=== PATIENT | female | born 1985 | race Caucasian/White ===

== ENCOUNTER 2021-10-24 13:52 | Emergency (ER) | payer SELFPAY ==
[~2021-10-24] VITALS: Ht 162.6 cm; Wt 63.5 kg
[2021-10-24 14:29] LABS: Basophils # (auto) 0.1 10 ^3/uL (0-0.2); Basophils % (auto) 1.2 % (0.0-2.0); Eosinophils # (auto) 0.2 10 ^3/uL (0-0.8); Eosinophils % (auto) 3.4 % (0.0-7.0); Hematocrit 39.3 % (36.0-46.0); Hemoglobin 13.3 g/dL (12.2-16.2); Lymphocytes # (auto) 1.5 10 ^3/uL (0.4-5.4); Lymphocytes % (auto) 28.4 % (10.0-50.0); Mean Corpuscular Hemoglobin 28.1 pg (28.0-32.0); Mean Corpuscular Hgb Conc. 33.8 g/dL (32.0-36.0); Mean Corpuscular Volume 82.9 fL (80.0-100.0); Monocytes # (auto) 0.4 10 ^3/uL (0-1.3); Monocytes % (auto) 8.1 % (0.0-12.0); Neutrophils % (auto) 58.9 % (37.0-80.0); Red Blood Cells 4.74 10^6/uL (4.0-5.20); Red Cell Distribution Width 13.6 % (11.8-14.3); White Blood Cell 5.1 10^3/uL (4.4-10.8)
[2021-10-24 14:47] LABS: Potassium 3.8 mmol/L (3.5-5.1)
[2021-10-24 14:48] LABS: Albumin 3.8 g/dL (3.4-5.0); BUN/Creatinine Ratio 11.8; Calcium 9.5 mg/dL (8.5-10.1)
[2021-10-24 14:49] LABS: Bilirubin, Total 0.8 mg/dL (0.2-1.0); Total Protein 7.4 g/dL (6.4-8.2)
[2021-10-24 15:25] LABS: Alcohol, Urine < 3.0 mg/dL (0-10); Amphetamine Screen, Urine POSITIVE (NEGATIVE); Barbiturate Scree,Urine NEGATIVE (NEGATIVE); Benzodiazephine Screen, Urine POSITIVE (NEGATIVE); Cannabinoid Screen, Urine NEGATIVE (NEGATIVE); Cocaine Screen, Urine NEGATIVE (NEGATIVE); Opiate Scree,Urine NEGATIVE (NEGATIVE); Phencyclidine Screen, Urine NEGATIVE (NEGATIVE)
[2021-10-24] MEDS ORDERED: ONDANSETRON HCL 4 MG/2 ML VIAL IV ONE (15:30)
[2021-10-24] MEDS ORDERED: ACETAMINOPHEN 325 MG TAB PO ONE (15:30)
[2021-10-24 16:00] VITALS: BP 107/74
== END 2021-10-24 16:35 | disposition home or self-care (01) ==
LOC: ER 13:52 → EDBD 13:52 → ER 16:35
DX: T65.91XA Toxic effect of unspecified substance, accidental (unintentional), initial encounter (principal); Z88.2 Allergy status to sulfonamides; Y92.89 Other specified places as the place of occurrence of the external cause
CPT/HCPCS: 36415; 71045; 80053; 80307; 84484; 85025; 93005; 96374; 99285; J2405